=== PATIENT | female | born 1990 | race African-American/Black ===

== ENCOUNTER 2016-11-19 19:32 | Emergency (ER) | payer SELFPAY ==
--- NOTE | 2016-11-19 23:52 | ED ---
Ramona Nunes Edward, scribed for Dio Herron MD on 11/19/16 at 2339 . Back Pain - HPI Summary HPI Summary: 26 y/o female presents to the ED c/o sudden onset upper back pain since 11/18/16 1400. The pain was rated a 7/10 at triage. The pain radiates to the ABD now and is aggravated when she bends over. Pt states that she is , unsure of gestation. Pt denies cramping or bleeding. - History of Current Complaint Chief Complaint: EDBackInjuryPain Stated Complaint: PREG/BACK PAIN Time Seen by Provider: 11/19/16 23:34 Hx Obtained From: Patient Onset/Duration: Sudden Onset, Lasting Days - 3 days, Still Present Onset/Duration: Started Days Ago, Still Present Back Pain Location: Is Discrete @ - Lower back Pain Intensity: 7 Pain Scale Used: 0-10 Numeric Aggravating Symptom(s): Bending Associated Signs And Symptoms: Positive: Abdominal Pain - Back pain radiating to ABD - Allergies/Home Medications Allergies/Adverse Reactions: Allergies Allergy/AdvReac Type Severity Reaction Status Date / Time No Known Allergies Allergy Verified 11/19/16 20:31 PMH/Surg Hx/FS Hx/Imm Hx Previously Healthy: No Respiratory History: Denies: Hx Asthma Infectious Disease History: Denies: History Other Infectious Disease, Traveled Outside the [place] in Last 30 Days - Family History Known Family History: Negative: Cardiac Disease, Hypertension, Diabetes - Social History Alcohol Use: Occasionally Hx Substance Use: No Substance Use Type: Reports: None Hx Tobacco Use: No Smoking Status (MU): Never Smoked Tobacco Have You Smoked in the Last Year: No Review of Systems Constitutional: Negative Eyes: Negative ENT: Negative Cardiovascular: Negative Respiratory: Negative Positive: Abdominal Pain - Back pain radiating to ABD Genitourinary: Negative Positive: Myalgia - Lower back pain Skin: Negative Neurological: Negative Psychological: Normal All Other Systems Reviewed And Are Negative: Yes Physical Exam Triage Information Reviewed: Yes Vital Signs On Initial Exam: Initial Vitals Temp Pulse Resp BP Pulse Ox 97.7 F 68 16 119/78 99 11/19/16 20:25 11/19/16 20:25 11/19/16 20:25 11/19/16 20:25 11/19/16 20:25 Vital Signs Reviewed: Yes Appearance: Positive: Well-Appearing, No Pain Distress Skin: Positive: Warm Head/Face: Positive: Normal Head/Face Inspection Eyes: Positive: ENRIQUE ENT: Positive: Hearing grossly normal Neck: Positive: Supple Respiratory/Lung Sounds: Positive: Breath Sounds Present Cardiovascular: Positive: RRR Abdomen Description: Positive: Nontender, Soft Bowel Sounds: Positive: Present Musculoskeletal: Positive: Normal, Other - no back tenderness elicited Neurological: Positive: Sensory/Motor Intact, Alert, Oriented to Person Place, Time, Normal Gait Psychiatric: Positive: Affect/Mood Appropriate Diagnostics - Vital Signs Vital Signs Temp Pulse Resp BP Pulse Ox 11/19/16 22:27 97.9 F 62 18 114/48 100 11/19/16 20:25 97.7 F 68 16 119/78 99 - Laboratory Lab Statement: Any lab studies that have been ordered have been reviewed, and results considered in the medical decision making process. Re-Evaluation - Re-Evaluation 1 Re-Evaluation Time: 00:56 - Discussed lab results and patient care Back Pain Course/Dx - Course Assessment/Plan: 26 y/o female presents to the ED c/o sudden onset upper back pain since 11/18/16 1400. Pt unsure of gestational age. Pt will be d/ c home and instructed to take Tylenol for pain. - Diagnoses Provider Diagnoses: Back pain, Discharge - Discharge Plan Condition: Stable Disposition: HOME Patient Education Materials: Back Pain (ED), (ED) Referrals: [facility] [Outside] - 3 Days (Please f/u in 2-3 days) Additional Instructions: Please take Tylenol for pain The documentation as recorded by the Ramona ferro Edward accurately reflects the service I personally performed and the decisions made by , Dio Herron MD.
[2016-11-20] MEDS ORDERED: Acetaminophen TAB* 325 MG PO ONE (00:04)
[2016-11-20 01:22] LABS: Urine Bacteria Absent (Absent); Urine Bilirubin Negative (Negative); Urine Glucose Negative (Negative); Urine Nitrite Negative (Negative)
[2016-11-20 01:43] VITALS: BP 119/43
== END 2016-11-20 01:48 | disposition home or self-care (01) ==
LOC: ED 19:32
DX: O26.899 Other specified pregnancy related conditions, unspecified trimester (principal); M54.6 Pain in thoracic spine; R10.9 Unspecified abdominal pain; Z3A.00 Weeks of gestation of pregnancy not specified
CPT/HCPCS: 36415; 81003; 81015; 84702; 87086; 99282; A9270-GY

== ENCOUNTER 2017-07-19 07:02 | Inpatient (IN) | payer OTHER ==
[2017-07-19] MEDS ORDERED: Penicillin G Potassium IV* 5,000,000 UNITS in NS 0.9% 100 ML* 100 ML IVPB ONE (08:15)
[2017-07-19 08:44] LABS: ABS Basophils 0.1 10^3/ul (0-0.2); ABS Eosinophils 0.1 10^3/ul (0-0.6); ABS Lymphocytes 1.5 10^3/ul (1.0-4.8); ABS Monocytes 0.6 10^3/ul (0-0.8); ABS Neutrophils 7.5 10^3/ul (1.5-7.7); ABS Nucleated RBC 0 10^3/ul; Eosinophil % 0.7 % (0-6); Hematocrit 33 % (35-47); Hemoglobin 10.9 g/dl (12.0-16.0); Lymphocyte % 15.4 % (25-47); Mean Corpuscular HGB Conc 33 g/dl (31-36); Mean Corpuscular Hemoglobin 22 pg (27-31); Mean Corpuscular Volume 66 fL (80-97); Mean Platelet Volume 8.5 um3 (7.4-10.4); Nucleated Red Blood Cells % 0; Platelet Count 298 10^3/ul (150-450); Red Blood Count 5.05 10^6/ul (4.0-5.4); Red Cell Distribution Width 15 % (10.5-15); White Blood Count 9.8 10^3/ul (3.5-10.8)
--- NOTE | 2017-07-19 09:17 | HP ---
General Information - General Information Maternal Age: 27 Grav: 2 Para: 1 SAB: 0 IEA: 0 Estimated Due Date: 07/15/17 Determined By: Early Ultrasound Gestational Age in Weeks and Days: 40 Weeks and 4 Days Maternal Blood Type and Rh: B Positive - Results this Serology/RPR Result: Non-Reactive Rubella Result: Immune HBsAg Result: Negative HIV Result: Negative GBS Culture Result: Positive Past Medical History Delivery History: Hx Uncomplicated Vaginal Delivery Pertinent Past Medical History: Non-Contributory Pertinent Past Surgical History: None Pertinent Family History: See Records - Antepartal Records Antepartal Records: Reviewed, Uncomplicated Review of Systems Constitutional: Uncomfortable - with contractions CV Complaint: No Respiratory: Shortness of Breath: No Gastrointestinal: No Nausea/Vomiting Genitourinary: Dysuria, No Leaking Fluid Musculoskeletal: No Complaint Neurological: No Headache, No Visual Changes Movement: Normal Exam Allergies/Adverse Reactions: Allergies No Known Allergies Allergy (Verified 11/19/16 20:31) Temp 98.2 Pulse 85 RR 20 BP 118/79 Lab Values - Entire Visit: Laboratory Tests 07/19/17 07/19/17 08:15 08:15 WBC 9.8 RBC 5.05 Hgb 10.9 L Hct 33 L MCV 66 L MCH 22 L MCHC 33 RDW 15 Plt Count 298 MPV 8.5 Neut % (Auto) 77.3 Lymph % (Auto) 15.4 L [place] % (Auto) 6.1 Eos % (Auto) 0.7 Baso % (Auto) 0.5 Absolute Neuts (auto) 7.5 Absolute Lymphs (auto) 1.5 Absolute Monos (auto) 0.6 Absolute Eos (auto) 0.1 Absolute Basos (auto) 0.1 Absolute Nucleated RBC 0 Nucleated RBC % 0 Blood Type B Positive Antibody Screen Negative - Measurements Height: 5 ft 4 in Weight: 207 lb Weight in lbs: 207 Body Mass Index (BMI): 35.5 - Exam Abdomen: No Upper Quadrant Pain Breast: Breast Exam Deferred CVA: No CVA Tenderness Extremities: No Edema Heart: Normal Rhythm/Heart Sounds HEENT: No Significant Findings Lungs: Clear Bilaterally Rectal: Rectal Exam Deferred EFM Findings - External Monitor Findings Baseline Heart Rate: 140 External Monitor Findings: Accelerations Present Contractions: Regular Assessment/Plan - Obstetrical Risk Factors Obstetrical Risk Factors: GBS Positive - Plan Plan: Observe, Early Labor, Antibiotic Prophylaxis
[2017-07-19] MEDS ORDERED: Promethazine INJ(RESTRICTED)* 25 MG/ML 1 ML VIAL ONE (12:45)
[2017-07-19] MEDS ORDERED: Nalbuphine* 20 MG/ML 1 ML VIAL ONE (12:45)
[2017-07-19] MEDS: Penicillin G Potassium IV* 2,500,000 UNITS in NS 0.9% 100 ML* 100 ML IVPB SCH ×2 (13:31→18:10)
[2017-07-19] MEDS ORDERED: Ibuprofen TAB* 600 MG PO PRN (17:02)
[2017-07-19] MEDS ORDERED: Witch Hazel PAD* JAR TOPICAL PRN (17:02)
[2017-07-19] MEDS ORDERED: OXYTOCIN* 10 UNITS/ML 1 ML VIAL IM ONE (17:02)
[2017-07-19] MEDS ORDERED: Dibucaine 1% 28.35 GM TUBE PR PRN (17:02)
[2017-07-19] MEDS ORDERED: Glycerin ADULT SUPP PR PRN (17:02)
[2017-07-19] MEDS ORDERED: Acetaminophen TAB* 325 MG PO PRN (17:02)
[2017-07-19] MEDS ORDERED: OXYTOCIN* 10 UNITS/ML 1 ML VIAL ONE (20:36)
[2017-07-20 06:50] LABS: ABS Basophils 0.1 10^3/ul (0-0.2); ABS Eosinophils 0.1 10^3/ul (0-0.6); ABS Lymphocytes 2.8 10^3/ul (1.0-4.8); ABS Monocytes 1.1 10^3/ul (0-0.8); ABS Neutrophils 12.6 10^3/ul (1.5-7.7); ABS Nucleated RBC 0 10^3/ul; Eosinophil % 0.3 % (0-6); Hematocrit 30 % (35-47); Hemoglobin 9.7 g/dl (12.0-16.0); Lymphocyte % 16.8 % (25-47); Mean Corpuscular HGB Conc 32 g/dl (31-36); Mean Corpuscular Hemoglobin 21 pg (27-31); Mean Corpuscular Volume 67 fL (80-97); Mean Platelet Volume 8.6 um3 (7.4-10.4); Nucleated Red Blood Cells % 0; Platelet Count 289 10^3/ul (150-450); Red Blood Count 4.51 10^6/ul (4.0-5.4); Red Cell Distribution Width 15 % (10.5-15); White Blood Count 16.6 10^3/ul (3.5-10.8)
[2017-07-20] MEDS ORDERED: Ferrous Gluconate TAB* 324 MG TAB PO SCH (09:00)
[2017-07-20] MEDS: Docusate CAP* 100 MG PO SCH (09:32)
[2017-07-20] MEDS: Simethicone TAB* 80 MG TAB.CHEW PO SCH ×2 (09:33→12:30)
[2017-07-20] MEDS ORDERED: Tetan/Diph/Pertus SYR(Tdap)* 0.5 ML SYR(BOOSTRIX) use SYR IM ONE (10:00)
[2017-07-20 13:07] VITALS: BP 115/54
== END 2017-07-20 17:30 | disposition home or self-care (01) | DRG 560 ==
LOC: MCHOBOUT 07:02 → MCHOB 09:05
PROVIDERS: ADMIT Obstetrics & Gynecology; ATTEND Obstetrics & Gynecology
PROC: 10E0XZZ Delivery of Products of Conception, External Approach (ICD-10-PCS; principal; 2017-07-19)
DX: O48.0 Post-term pregnancy (principal); O90.81 Anemia of the puerperium; D64.9 Anemia, unspecified; O99.824 Streptococcus B carrier state complicating childbirth; Z3A.40 40 weeks gestation of pregnancy; Z37.0 Single live birth
CPT/HCPCS: 36415; 85025; 86850; 86900; 86901; A9270-GY; J2300; J2540; J2550; J2590

== ENCOUNTER 2018-07-27 16:04 | Emergency (ER) | payer OTHER ==
[2018-07-27 18:59] LABS: Hematocrit 36 % (33-41); Hemoglobin 11.4 g/dL (12.0-16.0); Mean Corpuscular HGB Conc 32 g/dL (31-36); Mean Corpuscular Hemoglobin 22 pg (27-31); Mean Corpuscular Volume 68 fL (80-97); Mean Platelet Volume 8.3 fL (7.4-10.4); Platelet Count 367 10^3/uL (150-450); Red Blood Count 5.31 10^6 /uL (3.70-4.87); Red Cell Distribution Width 15 % (10.5-15); White Blood Count 10.6 10^3/uL (3.5-10.8)
[2018-07-27 19:17] LABS: Albumin 3.9 g/dL (3.2-5.2); Albumin/Globulin Ratio 1.3 (1-3); BUN/Creatinine Ratio 15.7 (8-20); Calcium 9.4 mg/dL (8.6-10.3); EGFR African American 122.4 (>60); EGFR Non-African American 101.1 (>60); Globulin 2.9 g/dL (2-4); Potassium 4.3 mmol/L (3.5-5.0); Total Bilirubin 0.5 mg/dL (0.2-1.0); Total Protein 6.8 g/dL (6.4-8.9)
[2018-07-27] MEDS ORDERED: Al Hydrox/Mg Hydrox/Simet LIQ* 30 ML UDC PO ONE (20:51)
[2018-07-27] MEDS ORDERED: Omeprazole CAP (NF) 20 MG CAP.DR PO ONE (20:51)
[2018-07-27] MEDS ORDERED: Lidocaine 2% VISCOUS* 15 ML UDC PO ONE (20:51)
--- NOTE | 2018-07-27 20:52 | ED ---
HPI Chest Pain - HPI Summary HPI Summary: 28-year-old female presents with chest/abdominal pain for the past couple weeks. She states that it feels a burning sensation. States it feels like acid reflux. pain is worst after she eats. States pain does not radiate anywhere. Denies any shortness of breath. No palpitations. No cough. No recent illness. Never had this happen before. Denies any family history of cardiac disease. No pain or swelling of calf muscles. is not on control. No recent travel. Does not smoke or use drugs. Has no medical conditions. - History of Current Complaint Chief Complaint: EDChestPainROMI Time Seen by Provider: 07/27/18 20:39 Hx Last Menstrual Period: 01/29/16 Pain Intensity: 6 - Allergy/Home Medications Allergies/Adverse Reactions: Allergies Allergy/AdvReac Type Severity Reaction Status Date / Time No Known Allergies Allergy Verified 11/19/16 20:31 PMH/Surg Hx/FS Hx/Imm Hx Endocrine/Hematology History: Denies: Hx Anticoagulant Therapy Respiratory History: Denies: Hx Asthma Infectious Disease History: No Infectious Disease History: Denies: History Other Infectious Disease, Traveled Outside the in Last 30 Days - Family History Known Family History: Negative: Cardiac Disease, Hypertension, Diabetes - Social History Alcohol Use: None Hx Substance Use: No Substance Use Type: Reports: None Hx Tobacco Use: No Smoking Status (MU): Never Smoked Tobacco Have You Smoked in the Last Year: No Review of Systems Negative: Fever Positive: Chest Pain Negative: Shortness Of Breath Positive: Abdominal Pain. Negative: Vomiting, Diarrhea, Nausea All Other Systems Reviewed And Are Negative: Yes Physical Exam Triage Information Reviewed: Yes Vital Signs On Initial Exam: Initial Vitals Temp Pulse Resp BP Pulse Ox 98.1 F 68 16 120/79 100 07/27/18 16:06 07/27/18 16:06 07/27/18 16:06 07/27/18 16:06 07/27/18 16:06 Vital Signs Reviewed: Yes Appearance: Positive: Well-Appearing Skin: Positive: Warm, Dry Head/Face: Positive: Normal Head/Face Inspection Eyes: Positive: Normal, Conjunctiva Clear ENT: Positive: Pharynx normal Respiratory/Lung Sounds: Positive: Clear to Auscultation, Breath Sounds Present Cardiovascular: Positive: Normal, RRR Abdomen Description: Positive: Nontender, Soft Bowel Sounds: Positive: Present Musculoskeletal: Positive: Normal Neurological: Positive: Normal Psychiatric: Positive: Normal Diagnostics - Vital Signs Vital Signs Temp Pulse Resp BP Pulse Ox 07/27/18 19:52 98.2 F 68 16 90/64 100 07/27/18 18:10 97.5 F 68 16 117/83 100 07/27/18 16:06 98.1 F 68 16 120/79 100 - Laboratory Lab Results: Lab Results 07/27/18 07/27/18 Range/Units 18:41 18:41 WBC 10.6 (3.5-10.8) 10^3/uL RBC 5.31 H (3.70-4.87) 10^6 /uL Hgb 11.4 L (12.0-16.0) g/dL Hct 36 (33-41) % MCV 68 L (80-97) fL MCH 22 L (27-31) pg MCHC 32 (31-36) g/dL RDW 15 (10.5-15) % Plt Count 367 (150-450) 10^3/uL MPV 8.3 (7.4-10.4) fL Sodium 139 (135-145) mmol/L Potassium 4.3 (3.5-5.0) mmol/L Chloride 106 (101-111) mmol/L Carbon Dioxide 28 (22-32) mmol/L Anion Gap 5 (2-11) mmol/L BUN 11 (6-24) mg/dL Creatinine 0.70 (0.51-0.95) mg/dL Est GFR ( Amer) 122.4 (>60) Est GFR (Non-Af Amer) 101.1 (>60) BUN/Creatinine Ratio 15.7 (8-20) Glucose 85 (70-100) mg/dL Calcium 9.4 (8.6-10.3) mg/dL Total Bilirubin 0.50 (0.2-1.0) mg/dL AST 11 L (13-39) U/L ALT 9 (7-52) U/L Alkaline Phosphatase 30 L (34-104) U/L Troponin I 0.00 (<0.04) ng/mL Total Protein 6.8 (6.4-8.9) g/dL Albumin 3.9 (3.2-5.2) g/dL Globulin 2.9 (2-4) g/dL Albumin/Globulin Ratio 1.3 (1-3) Result Diagrams: 07/27/18 18:41 07/27/18 18:41 Lab Statement: Any lab studies that have been ordered have been reviewed, and results considered in the medical decision making process. - Radiology chest Radiology Interpretation Completed By: ED Physician Summary of Radiographic Findings: no active disease - EKG No standard instances Cardiac Rate: Bradycardia EKG Rhythm: Sinus Bradycardia Summary of EKG Findings: sinus bradycardia Chest Pain Course/Dx - Course Course Of Treatment: 28-year-old female presents with chest/abdominal pain for the past couple weeks. She states that it feels a burning sensation. States it feels like acid reflux. pain is worst after she eats. States pain does not radiate anywhere. Denies any shortness of breath. No palpitations. No cough. No recent illness. Never had this happen before. Denies any family history of cardiac disease. No pain or swelling of calf muscles. is not on control. No recent travel. Does not smoke or use drugs. Has no medical conditions. On exam tenderness in the epigastric region. No rebound. EKG shows sinus rhythm. Troponin 0. Discuss we'll try to treat for gastritis but patient does not want stay so was not able to assess if meds work. will discharged with omeprazole and Maalox. Told to follow up primary. Patient understands agrees with plan. - Diagnoses Provider Diagnoses: Chest pain Discharge - Sign-Out/Discharge Documenting (check all that apply): Patient Departure Patient Received Moderate/Deep Sedation with Procedure: No - Discharge Plan Condition: Good Disposition: HOME Prescriptions: Al Hydrox/Mg Hydrox/Simet LIQ* [Maalox Plus*] 30 ml PO Q6H PRN #1 udc PRN Reason: Dyspepsia Omeprazole CAP (NF) [Prilosec CAP* 20 MG] 20 mg PO DAILY #14 cap. Patient Education Materials: Gastroesophageal Reflux Disease (ED) Forms: *Work Release Referrals: [facility] [facility] [Outside] Additional Instructions: Take omeprazole once a day Take Maalox 30ml every 6 hours for epigastric pain as needed Avoid acidic foods Elevated head of bed Stay upright for at least 30 mins after eating Follow up with primary Return to ED if develop any new or worsening symptoms - Billing Disposition and Condition Condition: GOOD Disposition: Home
[2018-07-27] MEDS ORDERED: Pantoprazole TAB * 40 MG TAB PO ONE (21:13)
[2018-07-27 21:30] VITALS: BP 107/53
== END 2018-07-27 21:28 | disposition home or self-care (01) ==
LOC: ED 16:04 → SUPCPDRO 16:04 → ED 21:28
DX: R07.9 Chest pain, unspecified (principal)
CPT/HCPCS: 36415; 71046; 80053; 84484; 85027; 93005; 99284; A9270-GY

== ENCOUNTER 2020-11-22 00:19 | Inpatient (IN) ==
[2020-11-22 02:00] LABS: Urine Benzodiazepine Screen None Detected (None Detect); Urine Cannabinoids Screen None Detected (None Detect); Urine Opiates Screen None Detected (None Detect)
[2020-11-22] MEDS ORDERED: Witch Hazel PAD JAR TOPICAL PRN (17:10)
[2020-11-22] MEDS ORDERED: Dibucaine 1% OINT 28.35 GM TUBE PR PRN (17:10)
[2020-11-22] MEDS ORDERED: Oxytocin in LR 20 UNITS/1,000 ML BAG IVPB SCH (18:00)
[2020-11-22] MEDS ORDERED: Lactated Ringers 1000 ml BAG 1,000 ML IV SCH (18:00)
[2020-11-22] MEDS ORDERED: Oxytocin 10 UNITS/ML 1 ML VIAL ONE (20:29)
[2020-11-23 06:35] LABS: ABS Eosinophils 0.1 10^3/ul (0-0.6); ABS Lymphocytes 2.5 10^3/ul (1.0-4.8); ABS Neutrophils 13.1 10^3/ul (1.5-7.7); Eosinophil % 0.4 %; Hematocrit 30 % (35-47); Hemoglobin 9.6 g/dL (12.0-16.0); Lymphocyte % 14.7 %; Mean Corpuscular HGB Conc 32 g/dL (31-36); Mean Corpuscular Hemoglobin 22 pg (27-31); Mean Corpuscular Volume 68 fL (80-97); Mean Platelet Volume 8.3 fL (7.4-10.4); Platelet Count 276 10^3/uL (150-450); Red Blood Count 4.39 10^6 /uL (3.70-4.87); Red Cell Distribution Width 15 % (10-15); White Blood Count 16.7 10^3/uL (3.5-10.8)
[2020-11-23 16:19] VITALS: BP 112/55
== END 2020-11-23 18:25 | disposition home or self-care (01) | DRG 560 ==
LOC: MCHOBOUT 00:19 → MCHOB 00:43
PROVIDERS: ADMIT Midwife; ATTEND Midwife